=== PATIENT | male | born 1980 | race Caucasian/White ===

== ENCOUNTER 2017-05-20 08:33 | Emergency (ER) | payer OTHER ==
[~2017-05-20] VITALS: Ht 175.3 cm; Wt 78.0 kg
[~2017-05-20 08:33] MED LIST: BACTRIM,SEPT1 TABLET; CEPHALEXIN500 MG; ERYTHROMYC1 APPLICAT RIGHT EYE; HYDROCODON-ACE1 EAC7; METHADONE10 MG PO; METHADOSE10 MG PO; METHADOSE40 MG PO; NAPROSYN500 MG; NAPROSYN500 MG PO; VYVANSE50 MG PO
[2017-05-20] MEDS ORDERED: PERCOCET 5/31 TABLET PO (09:41)
[2017-05-20] MEDS ORDERED: CLINDAMYCIN HC150 MG PO (09:41)
[2017-05-20 10:05] VITALS: BP 133/89
== END 2017-05-20 10:06 | disposition home or self-care (01) ==
LOC: EME 08:33
PROC: 0H99XZZ Drainage of Perineum Skin, External Approach (ICD-10-PCS; principal; 2017-05-20)
DX: K61.0 Anal abscess (principal)
CPT/HCPCS: 99281; 99284; J3010